=== PATIENT | female | born 1980 | race Caucasian/White ===

== ENCOUNTER 2017-04-06 05:35 | Day surgery (SDC) | payer MEDICAID ==
[~2017-04-06] VITALS: Ht 157.5 cm; Wt 86.2 kg
[2017-04-06] MEDS ORDERED: fentaNYL CITRATE/PF 100 MCG/2 ML AMP IVP ONE (07:16)
[2017-04-06] MEDS ORDERED: MEPERIDINE HCL/PF 100 MG/ML AMP IM ONE (07:16)
[2017-04-06] MEDS ORDERED: NS IRRIG SOLN 1000 ML IR ONE (07:16)
[2017-04-06] MEDS ORDERED: LR 1,000 ML IV.SOLN IV ONE (07:16)
[2017-04-06] MEDS ORDERED: MIDAZOLAM HCL 5 MG/5 ML VIAL IVP ONE (07:16)
[2017-04-06] MEDS ORDERED: PROPOFOL 200MG/ 20ML VIAL (DIPRIVAN) IV ONE (07:16)
[2017-04-06] MEDS ORDERED: GLYCOPYRROLATE 0.2 MG/ML VIAL IJ ONE (07:16)
[2017-04-06] MEDS ORDERED: BUPIVACAINE /EPINEPHRINE/PF 0.25% 30 ML VIAL INJ ONE (07:16)
[2017-04-06] MEDS ORDERED: DEXAMETHASONE SOD PHOSPHATE 4 MG/ML VIAL IVP ONE (07:16)
[2017-04-06] MEDS ORDERED: SEVOFLURANE 15 MIN GAS INH ONE (07:16)
[2017-04-06] MEDS ORDERED: IPRATROPIUM/ALBUTEROL SULFATE 3 ML AMPUL.NEB INH ONE (08:45)
[2017-04-06] MEDS ORDERED: LR 1,000 ML IV ONE (08:46)
[2017-04-06] MEDS ORDERED: IPRATROPIUM BROM 0.5 MG/2.5 ML VIAL.NEB (ATROVENT) INH ONE (08:48)
[2017-04-06] MEDS ORDERED: ALBUTEROL SULFATE 0.083% 2.5 MG/3 ML VIAL.NEB INH ONE (08:48)
[2017-04-06] MEDS ORDERED: DIPHENHYDRAMINE INJ 50 MG/ML VIAL IVP PRN (09:00)
[2017-04-06] MEDS ORDERED: ePHEDrine sulfate 50 MG/ML VIAL IVP PRN (09:00)
[2017-04-06] MEDS ORDERED: ONDANSETRON HCL 4 MG/2 ML VIAL IVP PRN ×2 (09:00)
[2017-04-06] MEDS ORDERED: NALOXONE HCL 0.4 MG/ML AMP (NARCAN) IVP PRN (09:00)
[2017-04-06] MEDS ORDERED: fentaNYL CITRATE/PF 100 MCG/2 ML AMP IVP PRN (09:00)
[2017-04-06] MEDS ORDERED: NALBUPHINE HCL 10 MG/ML AMP IVP PRN (09:00)
[2017-04-06] MEDS ORDERED: fentaNYL CITRATE/PF 100 MCG/2 ML AMP ONE (09:10)
[2017-04-06 11:49] VITALS: BP_SYST 113
== END 2017-04-06 11:00 | disposition home or self-care (01) ==
LOC: SOR 05:35 → SMU 05:35 → SOR 11:00
PROVIDERS: ATTEND Otolaryngology
DX: J35.01 Chronic tonsillitis (principal); F17.200 Nicotine dependence, unspecified, uncomplicated; Z68.34 Body mass index [BMI] 34.0-34.9, adult; F33.9 Major depressive disorder, recurrent, unspecified; E66.3 Overweight; E66.01 Morbid (severe) obesity due to excess calories; Z88.8 Allergy status to other drugs, medicaments and biological substances
CPT/HCPCS: 42826; 88304; 94640; J1100; J2175; J2250; J2704; J3010; J3490 ×2; J7120; 88305